=== PATIENT | female | born 1990 | race Caucasian/White ===

== ENCOUNTER 2022-09-24 00:04 | Emergency (ER) | payer SELFPAY ==
[~2022-09-24] VITALS: Ht 157.5 cm; Wt 61.2 kg
[2022-09-24] MEDS ORDERED: FLUORESCEIN SODIUM OPHTH 1 EA STRIP OP ONE (00:30)
--- NOTE | 2022-09-24 00:30 | NUR ---
TO ER BED 13. BIBS. STUCK CONTACT LENS ON R EYE. PT IS ALERT AND ORIENTED. RR EVEN AND NONLABORED. CONNECTED TO MONITOR.
[2022-09-24] MEDS ORDERED: FLUORESCEIN SODIUM OPHTH 1 EA STRIP ONE (00:31)
[2022-09-24] MEDS ORDERED: POLY10DR OP (00:57)
--- NOTE | 2022-09-24 01:12 | NUR ---
Patient discharged to home in stable condition. Written and verbal after care instructions given. Patient verbalizes understanding of instruction.
[2022-09-24 01:13] VITALS: BP 121/78
== END 2022-09-24 01:13 | disposition home or self-care (01) ==
LOC: ER 00:12
DX: H18.821 Corneal disorder due to contact lens, right eye (principal)